=== PATIENT | male | born 1935 | race Caucasian/White ===

== ENCOUNTER 2017-11-23 08:42 | Day surgery (SDC) | payer MEDICARE, OTHER ==
[~2017-11-23] VITALS: Ht 182.9 cm; Wt 88.6 kg
[~2017-11-23 08:42] MED LIST: ADVIL200 MG PO; ALDACTONE 25MG25 M1 PO; ASPIRIN 81M81 MG/TA2 PO; B-121000 MCG PO; BETAPACE 80MG80 MG PO; BYSTOLIC5 MG PO; CARTIA XT120 MG PO; CEPHALEXIN500 M1 PO; COLACE 100100 MG/CAP PO; CRESTOR 10MG10 MG PO; FERROUS SU325 MG/TAB PO; FLOMAX 0.40.4 MG/CAP PO; HCTZ 25MG TAB25 MG PO; HCTZ12.5TAB PO; LANOXIN 0.120.125 MG PO; PRADAXA 150MG150 MG PO; PRINIVIL40 MG PO; TOPROL XL 50MG50 MG PO; TYLENOL 325MG325 MG PO; ZOCOR 40MG40 MG PO
[2017-11-23 09:23] LABS: MEAN CELL VOLUME 97 fl (80.0-100.0); MEAN CORPUSCULAR HGB CONC 31 g/dl (33.0-37.0); MEAN PLATELET VOLUME 10.3 fl (7.4-10.4); PLATELET COUNT 174 K/mm3 (130-400); RED BLOOD COUNT 3.29 M/mm3 (4.20-5.60); REDCELL DISTRIBUTION WIDTH-CV 14.8 % (11.5-14.5)
[2017-11-23 09:25] LABS: HEMATOCRIT 31.9 % (42.0-52.0); HEMOGLOBIN 9.8 g/dl (13.5-18.0); MEAN CORPUSCULAR HEMOGLOBIN 30 pg (27.0-31.0)
[2017-11-23 09:29] LABS: INR 1.9 (0.8-3.0); PROTHROMBIN TIME 21.4 SECONDS (9.7-12.8)
[2017-11-23 09:33] VITALS: BP 118/62; PULSE 73; TEMP 98
[2017-11-23 09:35] LABS: CALCIUM 9.4 mg/dL (8.4-10.2); CREATININE, serum 1.74 mg/dL (0.66-1.25); POTASSIUM 5.4 mmol/L (3.4-5.0)
[2017-11-23 10:00] VITALS: BP 111/59; PULSE 71
[2017-11-23 10:15] VITALS: BP 112/54; PULSE 69
[2017-11-23 10:30] VITALS: BP 114/55; PULSE 71
[2017-11-23 10:45] VITALS: BP 110/56; PULSE 72
== END 2017-11-23 11:24 | disposition home or self-care (01) ==
LOC: COL.CAR 08:42
PROVIDERS: Internal Medicine Cardiovascular Disease
DX: I48.0 Paroxysmal atrial fibrillation (principal); I12.9 Hypertensive chronic kidney disease with stage 1 through stage 4 chronic kidney disease, or unspecified chronic kidney disease; N18.9 Chronic kidney disease, unspecified; I65.29 Occlusion and stenosis of unspecified carotid artery; Z95.0 Presence of cardiac pacemaker; Z79.82 Long term (current) use of aspirin; Z79.01 Long term (current) use of anticoagulants; Z87.891 Personal history of nicotine dependence
CPT/HCPCS: J2704

== ENCOUNTER 2018-08-23 08:54 | Inpatient (IN) | payer MEDICARE, OTHER ==
[~2018-08-23] VITALS: Ht 182.9 cm; Wt 87.1 kg
--- NOTE | 2018-08-23 09:00 | NUR ---
patient arrived to room 307 with family.This RN oriented patient to room.no needs voiced at this time.
[2018-08-23 09:39] VITALS: BP 110/59; PULSE 89; TEMP 97.2
[2018-08-23 10:26] LABS: BASO % 0.2 % (0.0-2.0); EOS % 0.7 % (0-4.0); GRAN # 4.5 (1.4-6.5); GRAN % 76.6 % (42.2-75.2); HEMATOCRIT 40.2 % (42.0-52.0); HEMOGLOBIN 13.1 g/dl (13.5-18.0); LYMPH # 0.9 (1.2-3.4); LYMPH % 14.4 % (20.0-51.0); MEAN CELL VOLUME 99 fl (80.0-100.0); MEAN CORPUSCULAR HEMOGLOBIN 32 pg (27.0-31.0); MEAN CORPUSCULAR HGB CONC 33 g/dl (33.0-37.0); MEAN PLATELET VOLUME 10.4 fl (7.4-10.4); MONO # 0.5 (0.1-0.6); MONO % 7.8 % (1.7-9.3); PLATELET COUNT 140 K/mm3 (130-400); RED BLOOD COUNT 4.06 M/mm3 (4.20-5.60); REDCELL DISTRIBUTION WIDTH-CV 12.8 % (11.5-14.5)
[2018-08-23 10:30] LABS: INR 1.5 (0.8-3.0); PROTHROMBIN TIME 16.8 SECONDS (9.7-12.8)
[2018-08-23 10:42] LABS: BILIRUBIN,TOTAL 0.7 mg/dL (0.0-1.0); CALCIUM 9.9 mg/dL (8.4-10.2); CREATININE, serum 1.19 mg/dL (0.66-1.25); MAGNESIUM 1.9 mg/dL (1.6-2.3); POTASSIUM 5.1 mmol/L (3.4-5.0); TOTAL PROTEIN 6.8 gm/dL (6.4-8.2)
[2018-08-23] MEDS ORDERED: B-121000 MCG PO (10:44)
[2018-08-23] MEDS ORDERED: NATURAL IRON65 MG PO (10:45)
[2018-08-23 11:46] VITALS: BP 110/59; PULSE 89; TEMP 97.2
--- NOTE | 2018-08-23 12:19 | NUR ---
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
[2018-08-23 17:06] VITALS: BP 140/72; PULSE 73; TEMP 97.7
--- NOTE | 2018-08-23 18:22 | NUR ---
PATIENT HAS HAD AN UNEVENFUL DAY.RESTING IN BED AT THIS TIME.DENIES ANY NEEDS.CALL LIGHT IN REACH
--- NOTE | 2018-08-23 18:58 | NUR ---
report given to ILIANA Rowan
[2018-08-23 19:13] VITALS: BP 115/77; PULSE 58; TEMP 97.8
[2018-08-23 22:50] VITALS: BP 124/55; PULSE 76; TEMP 98
[2018-08-24 03:03] VITALS: BP 124/55; PULSE 74; TEMP 98.3
[2018-08-24 06:13] LABS: BASO % 0.2 % (0.0-2.0); EOS # 0.1 (0.0-0.7); EOS % 1.5 % (0-4.0); GRAN # 3.3 (1.4-6.5); GRAN % 70.5 % (42.2-75.2); HEMATOCRIT 40.6 % (42.0-52.0); HEMOGLOBIN 13.2 g/dl (13.5-18.0); LYMPH # 0.8 (1.2-3.4); LYMPH % 17.8 % (20.0-51.0); MEAN CELL VOLUME 100 fl (80.0-100.0); MEAN CORPUSCULAR HEMOGLOBIN 32 pg (27.0-31.0); MEAN CORPUSCULAR HGB CONC 33 g/dl (33.0-37.0); MEAN PLATELET VOLUME 10.8 fl (7.4-10.4); MONO # 0.5 (0.1-0.6); MONO % 9.8 % (1.7-9.3); PLATELET COUNT 145 K/mm3 (130-400); RED BLOOD COUNT 4.08 M/mm3 (4.20-5.60); REDCELL DISTRIBUTION WIDTH-CV 12.7 % (11.5-14.5)
[2018-08-24 06:17] LABS: INR 1.3 (0.8-3.0); PROTHROMBIN TIME 14.8 SECONDS (9.7-12.8)
[2018-08-24 06:27] LABS: CREATININE, serum 1.17 mg/dL (0.66-1.25); MAGNESIUM 1.9 mg/dL (1.6-2.3); POTASSIUM 4.7 mmol/L (3.4-5.0)
--- NOTE | 2018-08-24 06:56 | NUR ---
PT HAD UNEVENTFUL NOC. NO C/O CHEST PAIN. NO NOTED N/V/D, OR PAIN. NO ISSUES OR CONSERNS VOICED. WALKED AROUND BRIEFLY IN HALLWAY BEFORE GOING TO BED.
[2018-08-24 07:06] VITALS: BP 137/69; PULSE 76; TEMP 97.1
--- NOTE | 2018-08-24 07:50 | NUR ---
Assessmnet complete.patient sitting up in recliner.a/ox4.denies pain or discomfort at this time.denies chest pain or palpitations.breathings even and unlabored.LSCTA.patient took all meds this morning.QTc WNL.denies any needs at this time.call light in reach
--- NOTE | 2018-08-24 10:02 | NUR ---
Initial visit; Patient thanked [employer] Assistant for looking in on him and offering prayer and God's blessings.
[2018-08-24 10:54] VITALS: BP 126/55; PULSE 72; TEMP 98.4
--- NOTE | 2018-08-24 13:48 | NUR ---
DEVIN and SW student met with the patient to discuss discharge plan. The patient lives [place] [facility] with his , Maty. He reports independence with ADLs and does not use any DME. The patient's PCP is Dr. Nolan Monsalve and he receives his medications at [facility]. He reports no difficulties obtaining his meds. The patient does not have advanced directives and he was not interested in completing them at this time. He stated he would need to speak to his first. The patient plans to return home upon discharge. No additional needs at this time.
[2018-08-24 15:56] VITALS: BP 122/57; PULSE 70; TEMP 97.2
--- NOTE | 2018-08-24 19:06 | NUR ---
report given to ILIANA Rowan.
[2018-08-24 20:22] VITALS: BP 117/63; PULSE 70; TEMP 97.4
[2018-08-25 00:15] VITALS: BP 109/46; BP 140/56; PULSE 76; PULSE 82; TEMP 96.8; TEMP 98.2
[2018-08-25 04:43] VITALS: BP 134/59; PULSE 70; TEMP 97.9
[2018-08-25 05:54] LABS: BASO % 0.4 % (0.0-2.0); EOS # 0.1 (0.0-0.7); EOS % 1.1 % (0-4.0); GRAN % 67.7 % (42.2-75.2); HEMOGLOBIN 13.6 g/dl (13.5-18.0); LYMPH # 0.9 (1.2-3.4); MEAN CELL VOLUME 98 fl (80.0-100.0); MEAN CORPUSCULAR HEMOGLOBIN 32 pg (27.0-31.0); MEAN CORPUSCULAR HGB CONC 32 g/dl (33.0-37.0); MEAN PLATELET VOLUME 10.5 fl (7.4-10.4); MONO # 0.4 (0.1-0.6); MONO % 9.6 % (1.7-9.3); PLATELET COUNT 139 K/mm3 (130-400); RED BLOOD COUNT 4.27 M/mm3 (4.20-5.60); REDCELL DISTRIBUTION WIDTH-CV 12.6 % (11.5-14.5)
[2018-08-25 05:55] LABS: INR 1.3 (0.8-3.0)
--- NOTE | 2018-08-25 06:00 | NUR ---
PT HAD UNEVENTFUL NOC. NO C/O CHEST PAIN. PLEASANT AND COOPERATIVE WITH CARES. VOICES EAGERNESS TO BE GOING HOME TODAY. NO ISSUES OR CONERNS VOICED THROUGHOUT SHIFT.
[2018-08-25 06:03] LABS: CALCIUM 9.9 mg/dL (8.4-10.2); CREATININE, serum 1.18 mg/dL (0.66-1.25); MAGNESIUM 1.9 mg/dL (1.6-2.3); POTASSIUM 4.7 mmol/L (3.4-5.0)
[2018-08-25 07:40] VITALS: BP 123/46; PULSE 76; TEMP 97.6
--- NOTE | 2018-08-25 08:01 | NUR ---
Pt assessment complete. Pt is sitting up in the chair upon entry, he is A/O x3. His breathing is even and unlabored on RA. Pt denies SOB. No pain at this time. Pt denies N/V. No N/T. Denies chest pain or palpitations. Denies further needs, call light wihtin reach.
[2018-08-25] MEDS ORDERED: BETAPACE 80MG80 MG PO (10:10)
--- NOTE | 2018-08-25 12:16 | NUR ---
Discharge instructions reviewed with patient, all questions answered at this time. IV to LFA dc'd catheter tip intact. Pt awaiting ride.
--- NOTE | 2018-08-25 13:31 | NUR ---
Pt walked out of facility at this time.
== END 2018-08-25 13:32 | disposition home or self-care (01) | DRG 310 ==
LOC: MEDICAL 08:54
PROVIDERS: ADMIT Internal Medicine Cardiovascular Disease
DX: I48.0 Paroxysmal atrial fibrillation (principal); I10 Essential (primary) hypertension; Z95.0 Presence of cardiac pacemaker; Z87.891 Personal history of nicotine dependence; E78.00 Pure hypercholesterolemia, unspecified